=== PATIENT | female | born 1945 | race Two or more races ===

== ENCOUNTER 2016-10-19 11:11 | Inpatient (IN) | payer MEDICARE, MEDICAID ==
[~2016-10-19] VITALS: Ht 157.5 cm; Wt 72.6 kg
[2016-10-19 11:40] VITALS: BP 152/88
[2016-10-19 12:19] LABS: APPEARANCE,URINE CLEAR; KETONES,URINE 4+ (NEGATIVE); LEUKOCYTE ESTERASE ,URINE 1+ (NEGATIVE); NITRITE,URINE NEGATIVE (NEGATIVE); PH,URINE 8 (4.5-8.0); PROTEIN,URINE NEGATIVE (NEGATIVE); UROBILINOGEN,URINE NORMAL MG/DL (0.0-1.0)
[2016-10-19 12:22] LABS: BASOPHILS % (AUTO) 0.4 % (0.0-2.0); EOSINOPHILS % (AUTO) 0.2 % (0.0-3.0); LYMPHOCYTES % (AUTO) 14.1 % (20.0-45.0); MEAN CORPUSCULAR HEMOGLOBIN 31.5 PG (27.0-31.0); MEAN CORPUSCULAR HGB CONC 33.2 G/DL (32.0-36.0); MEAN CORPUSCULAR VOLUME 95 FL (80-99); MEAN PLATELET VOLUME 7.5 FL (6.5-10.1); MONOCYTES % (AUTO) 2.6 % (1.0-10.0); NEUTROPHILS % (AUTO) 82.7 % (45.0-75.0); PLATELET COUNT 295 K/UL (150-450); RED CELL DISTRIBUTION WIDTH 13.7 % (11.6-14.8); WHITE BLOOD COUNT 10.3 K/UL (4.8-10.8)
--- NOTE | 2016-10-19 12:25 | Diagnostic Imaging Report ---
Indication: Altered mental status Technique: spiral acquisitions obtained through the brain. Angled axial and coronal 5 x 5 mm slices were reconstructed. No IV contrast utilized. Radiation dose was minimized using automated exposure control Total dose length product 1421 mGycm. CTDIvol(s) 70 mGy Comparison: none FINDINGS: No acute hemorrhage or edema. No mass effect or midline shift. There is age-related enlargement of the ventricles and extra axial CSF spaces. There is periventricular deep white matter ischemic change. Normal christie-white differentiation. Visualized orbits are unremarkable. Visualized sinuses are unremarkable. Intact calvarium. IMPRESSION: Chronic and age-related changes. Negative for acute intracranial bleed or mass effect The CT scanner at [facility] is accredited by the [employer] and the scans are performed using protocols designed to limit radiation exposure to as low as reasonably achievable to attain images of sufficient resolution adequate for diagnostic evaluation
[2016-10-19 12:30] LABS: AMORPHOUS SEDIMENT,UR FEW /LPF; BACTERIA,URINE FEW /HPF; RBC,URINE 0-2 /HPF (0 - 2); SQUAMOUS EPITHELIAL CELL,UR FEW /LPF (NONE/OCC)
[2016-10-19 12:32] LABS: ACETAMINOPHEN < 10 ug/mL (10-30); ALANINE AMINOTRANSFERASE 18 U/L (3-33); ALBUMIN/GLOBULIN RATIO 1.2 (1.0-2.7); ALCOHOL < 10 mg/dL; ANION GAP 21 (5-15); ASPARTATE AMINO TRANSFERASE 20 U/L (5-40); CARBON DIOXIDE 23 mEQ/L (20-30); CHLORIDE 96 mEQ/L (98-107); CREATININE 0.8 mg/dL (0.5-0.9); GLOMERULAR FILTRATION RATE > 60 mL/min (>60); HEMOLYSIS 22; SODIUM 140 mEQ/L (135-145)
[2016-10-19 12:34] LABS: TROPONIN I < 0.30 ng/mL (<=0.30)
[2016-10-19] MEDS ORDERED: BISACODYL5 MG ORAL (12:42)
[2016-10-19] MEDS ORDERED: VITAMIN C500 M1 ORAL (12:42)
[2016-10-19] MEDS ORDERED: VITAMIN D250000 UNI1 ORAL (12:42)
[2016-10-19] MEDS ORDERED: LYRICA75 M1 ORAL ×2 (12:43→12:50)
[2016-10-19 12:44] LABS: CKMB 1.7 ng/mL (< 3.8)
[2016-10-19] MEDS ORDERED: BENZONATATE100 MG ORAL (12:46)
[2016-10-19] MEDS ORDERED: TYLENOL EXTRA500 MG ORAL (12:46)
[2016-10-19] MEDS ORDERED: Tumeric ORAL (12:46)
[2016-10-19] MEDS ORDERED: PROAIR HFA8.5 GM INH (12:46)
[2016-10-19] MEDS ORDERED: FISH OIL CAP1000 MG ORAL (12:50)
[2016-10-19] MEDS ORDERED: CYMBALTA60 MG ORAL (12:50)
[2016-10-19] MEDS ORDERED: TUSSIN DM COUG118 ML PO (12:50)
[2016-10-19] MEDS ORDERED: NORCO 5-325 TA1 EAC1 ORAL (12:50)
[2016-10-19] MEDS ORDERED: MELATONIN1 M2 PO (12:50)
[2016-10-19] MEDS ORDERED: CELEBREX200 MG ORAL (12:50)
[2016-10-19] MEDS ORDERED: ATIVAN1 MG ORAL (12:50)
[2016-10-19 13:30] VITALS: BP 144/77
[2016-10-19 14:43] VITALS: BP 146/86
--- NOTE | 2016-10-19 16:21 | Emergency Room Report ---
History of Present Illness General Chief Complaint: Altered Level of Consciousness Source: EMS, Caregiver Present Illness HPI 71-year-old female presents ED for evaluation. Per EMS patient noted to be more altered unusual starting this morning. Patient lives in an assisted- living facility. Patient has extensive psychiatric history. Unclear whether patient may have overdosed. Patient is awake but is not responding to questions. Hair Colorist at bedside states that patient was recently discharged from [facility] after being hospitalized for approximately one week for similar psychotic episode. Patient is in no distress upon arrival. No reported fevers or chills. Report chest pain shortness of breath. No other aggravating relieving factors. No other associated symptoms Allergies: Coded Allergies: HALOPERIDOL (Verified Allergy, Unknown, 10/19/16) Patient History Past Medical History: psych hx Past Surgical History: none Pertinent Family History: none Social History: Denies: alcohol use, drug use, smoking Now: No Immunizations: UTD Reviewed Nursing Documentation: PMH: Agreed, PSxH: Agreed Nursing Documentation-PMH Past Medical History: No History, Except For Hx Neurological Problems: Yes - SCHIZOPHERINIA, ANXIETY. Review of Systems All Other Systems: negative except mentioned in HPI Physical Exam Vital Signs Date Time Temp Pulse Resp B/P Pulse Ox O2 Delivery O2 Flow Rate FiO2 10/19/16 11:14 87 18 152/88 100 Room Air Sp02 EP Interpretation: reviewed, normal General Appearance: no apparent distress, non-toxic, other - catatonic Head: normocephalic Eyes: bilateral eye PERRL, bilateral eye normal inspection ENT: normal ENT inspection Neck: normal inspection Respiratory: chest non-tender, lungs clear, normal breath sounds, speaking full sentences Cardiovascular #1: regular rate, rhythm, no edema Gastrointestinal: normal bowel sounds, non tender, soft, non-distended, no guarding, no rebound Rectal: deferred Genitourinary: no CVA tenderness Musculoskeletal: normal inspection Neurologic: other - catatonic Psychiatric: other - catatonic Skin: normal inspection Lymphatic: normal inspection Medical Decision Making Diagnostic Impression: Primary Impression: Psychosis Qualified Codes: F29 - Unspecified psychosis not due to a substance or known physiological condition Additional Impression: Catatonia schizophrenia ER Course Hospital Course 71-year-old female presents ED catatonic state. Not responding to questions. Awake. Extensive psychiatric history Differential diagnoses include: Major depressive disorder, unspecified psychosis , EtOH abuse, drug abuse Clinical course Patient placed on stretcher. On one to one observation. After initial history and physical I ordered labs, U. tox, CT head Labs-electrolytes normal, aspirin/Tylenol levels normal, EtOH level normal, U. tox negative CT Head ok EKG - NSr, no acute changes Patient is medically cleared and pending psychiatric evaluation. I discussed case with psychiatrist Dr. David Botello. He agrees that patient does need to be hospitalized He will attempt to arrange transfer to [facility]. I feel this is a highly complex case requiring extensive working including EKG/Rhythm strip, Xray/CT/US, Blood/urine lab work, repeat exams while in ED, and administration of strong opiates/narcotics for pain control, admission to hospital or close patient follow up. Diagnoses-psychosis, catatonic schizophrenia Transfer to psychiatric hospital in serious condition Labs Test 10/19/16 11:30 White Blood Count 10.3 K/UL (4.8-10.8) Red Blood Count 5.30 M/UL (4.20-5.40) Hemoglobin 16.7 G/DL (12.0-16.0) Hematocrit 50.3 % (37.0-47.0) Mean Corpuscular Volume 95 FL (80-99) Mean Corpuscular Hemoglobin 31.5 PG (27.0-31.0) Mean Corpuscular Hemoglobin Concent 33.2 G/DL (32.0-36.0) Red Cell Distribution Width 13.7 % (11.6-14.8) Platelet Count 295 K/UL (150-450) Mean Platelet Volume 7.5 FL (6.5-10.1) Neutrophils (%) (Auto) 82.7 % (45.0-75.0) Lymphocytes (%) (Auto) 14.1 % (20.0-45.0) Monocytes (%) (Auto) 2.6 % (1.0-10.0) Eosinophils (%) (Auto) 0.2 % (0.0-3.0) Basophils (%) (Auto) 0.4 % (0.0-2.0) Urine Color Yellow Urine Appearance Clear Urine pH 8 (4.5-8.0) Urine Specific [place] 1.010 (1.005-1.035) Urine Protein Negative (NEGATIVE) Urine Glucose (UA) Negative (NEGATIVE) Urine Ketones 4+ (NEGATIVE) Urine Occult Blood Negative (NEGATIVE) Urine Nitrite Negative (NEGATIVE) Urine Bilirubin Negative (NEGATIVE) Urine Urobilinogen Normal MG/DL (0.0-1.0) Urine Leukocyte Esterase 1+ (NEGATIVE) Urine RBC 0-2 /HPF (0 - 2) Urine WBC 5-10 /HPF (0 - 2) Urine Squamous Epithelial Cells Few /LPF (NONE/OCC) Urine Amorphous Sediment Few /LPF (NONE) Urine Bacteria Few /HPF (NONE) Sodium Level 140 mEQ/L (135-145) Potassium Level 4.0 mEQ/L (3.4-4.9) Chloride Level 96 mEQ/L (98-107) Carbon Dioxide Level 23 mEQ/L (20-30) Anion Gap 21 (5-15) Blood Urea Nitrogen 12 mg/dL (7-23) Creatinine 0.8 mg/dL (0.5-0.9) Estimat Glomerular Filtration Rate > 60 mL/min (>60) Glucose Level 136 mg/dL (74-106) Calcium Level 10.0 mg/dL (8.6-10.2) Total Bilirubin 0.4 mg/dL (0.0-1.2) Aspartate Amino Transf (AST/SGOT) 20 U/L (5-40) Alanine Aminotransferase (ALT/SGPT) 18 U/L (3-33) Alkaline Phosphatase 88 U/L (35-104) Creatine Kinase MB 1.7 ng/mL (< 3.8) Troponin I < 0.30 ng/mL (<=0.30) Total Protein 7.0 g/dL (6.6-8.7) Albumin 3.9 g/dL (3.5-5.2) Globulin 3.1 g/dL Albumin/Globulin Ratio 1.2 (1.0-2.7) Salicylates Level < 1 mg/dL (10-30) Urine Opiates Screen Negative (NEGATIVE) Acetaminophen Level < 10 ug/mL (10-30) Urine Barbiturates Screen Negative (NEGATIVE) Phencyclidine (PCP) Screen Negative (NEGATIVE) Urine Amphetamines Screen Negative (NEGATIVE) Urine Benzodiazepines Screen Negative (NEGATIVE) Urine Cocaine Screen Negative (NEGATIVE) Urine Marijuana (THC) Screen Negative (NEGATIVE) Serum Alcohol < 10 mg/dL EKG Diagnostic Results Rate: normal Rhythm: NSR ST Segments: no acute changes ASA given to the pt in ED: No Rhythm Strip Diag. Results EP Interpretation: yes Rhythm: NSR, no PVC's, no ectopy CT/MRI/US Diagnostic Results CT/MRI/US Diagnostic Results : Imaging Test Ordered: CT Head Impression no acute process Last Vital Signs Date Time Temp Pulse Resp B/P Pulse Ox O2 Delivery O2 Flow Rate FiO2 10/19/16 14:43 79 17 146/86 97 Room Air Status: improved Disposition: XFER T-[facility] Condition: Serious Referrals: NOT CHOSEN IPA/,REFERRING (PCP) ELLE DAVIS M.D. Oct 19, 2016 16:21
[2016-10-19 16:50] VITALS: BP 139/70
[2016-10-19 19:05] VITALS: BP 149/64
[2016-10-19 21:04] VITALS: BP 142/78
[2016-10-19] MEDS ORDERED: LORazepam 1mg tab ORAL PRN (22:00)
[2016-10-19] MEDS ORDERED: guaiFENesin DM 100mg/5ml ORAL PRN (22:00)
[2016-10-19] MEDS ORDERED: Bisacodyl EC 5mg tab ORAL PRN ×2 (22:00→22:05)
[2016-10-19] MEDS ORDERED: Milk of Magnesia 30ml Ud ORAL PRN (22:00)
[2016-10-19] MEDS ORDERED: Acetaminophen 500mg (ES) tab ORAL PRN (22:00)
[2016-10-19] MEDS ORDERED: Miralax 17gm pkt ORAL PRN ×2 (22:00→22:05)
[2016-10-19] MEDS ORDERED: Benzonatate 100mg Perles ORAL PRN (22:00)
[2016-10-19] MEDS ORDERED: Albuterol ud Inhalation HHN PRN (22:15)
[2016-10-19] MEDS ORDERED: Meloxicam 15 MG TAB ORAL PRN (22:15)
[2016-10-19] MEDS: Docusate 100mg tablet ORAL SCH (22:30)
--- NOTE | 2016-10-19 22:58 | History and Physical ---
History of Present Illness General Date patient seen: Oct 19, 2016 Time patient seen: 22:58 Reason for Hospitalization: Altered Level of Consciousness Present Illness HPI 71y/o female with pmh of schizophrenia, anxiety who presents with AMS. Per EMS patient noted to be more altered unusual starting this morning. Patient lives in an assisted-living facility. Patient is awake but is not responding to questions. Road Passenger Firer at bedside states that patient was recently discharged from [facility] after being hospitalized for approximately one week for similar psychotic episode. No reports of f/c, n/v, d/c, chest pain, SOB, abd pain. In ED, CT head showed no acute abnormality. Allergies: Coded Allergies: HALOPERIDOL (Verified Allergy, Unknown, 10/19/16) Medication History Scheduled Ascorbic Acid* (Vitamin C*), 1,000 MG ORAL TWICE A DAY, (Reported) Duloxetine Hcl* (Cymbalta*), 60 MG ORAL DAILY, (Reported) Ergocalciferol (Vitamin D2)* (Vitamin D*), 50,000 UNIT ORAL ONCE A WEEK, ( Reported) Fish Oil (Fish Oil 1,000 mg Capsule), 1,000 MG ORAL DAILY, (Reported) Melatonin (Melatonin), 3 MG PO BEDTIME, (Reported) Pregabalin* (Lyrica*), 200 MG ORAL DAILY, (Reported) Pregabalin* (Lyrica*), 100 MG ORAL BID, (Reported) [Tumeric], 500 MG ORAL BID, (Reported) Scheduled PRN Acetaminophen* (Tylenol Extra Strength*), 1,000 MG ORAL BID PRN for Prn Headache /Temp > 101, (Reported) Albuterol Sulfate* (Proair Hfa*), 2 PUFFS INH Q4HR PRN for Shortness of Breath, (Reported) Benzonatate* (Benzonatate*), 100 MG ORAL THREE TIMES A DAY PRN for For Cough, ( Reported) Bisacodyl* (Dulcolax*), 5 MG ORAL DAILY PRN for Constipation, (Reported) Celecoxib* (Celebrex*), 200 MG ORAL TWICE A DAY PRN for For Pain, (Reported) Guaifenesin/Dextromethorphan (Tussin Dm Cough & Chest Syrup), 5 ML PO EVERY 4 HOURS PRN for For Cough, (Reported) Hydrocodone Bit/Acetaminophen 5-325* ([place] 5-325 Tablet*), 1 TAB ORAL Q6HR PRN for For Pain, (Reported) Lorazepam* (Ativan*), 1 MG ORAL BEDTIME PRN for For Anxiety, (Reported) Patient History History Provided By: Patient, Family Member, Medical Record Healthcare decision maker Resuscitation status Advanced Directive on File Family History Family History: Patient reports no known family medical history. Social History Social History: (1) Lives in assisted living facility Review of Systems ROS Narrative Unable to obtain given AMS Physical Exam Physical Exam Narrative General: alert, cooperative, no distress, appears stated age; flat affect Head: normocephalic, without obvious abnormality, atraumatic Eyes: conjunctivae/corneas clear. PERRL, EOM's intact Throat: lips, mucosa, and tongue normal. MMM Neck: supple, symmetrical, trachea midline, and no JVD Lungs: clear to auscultation bilaterally Heart: regular rate and rhythm, S1, S2 normal, no murmur, click, rub or gallop Abdomen: soft, non-tender, non-distended, bowel sounds normal; no masses or organomegaly Extremities: extremities normal, atraumatic, no cyanosis or edema Pulses: 2+ and symmetric Skin: skin color, texture, turgor normal; no rashes or lesions Neurologic: grossly normal, no focal deficits Last 24 Hour Vital Signs Date Time Temp Pulse Resp B/P Pulse Ox O2 Delivery O2 Flow Rate FiO2 10/19/16 21:04 72 20 142/78 94 Room Air 10/19/16 19:05 75 17 149/64 97 Room Air 10/19/16 16:50 77 17 139/70 97 Room Air 10/19/16 14:43 79 17 146/86 97 Room Air 10/19/16 13:30 76 18 144/77 96 Room Air 10/19/16 11:40 18 152/88 100 Room Air 10/19/16 11:14 87 18 152/88 100 Room Air Laboratory Tests Test 10/19/16 11:30 White Blood Count 10.3 K/UL (4.8-10.8) Red Blood Count 5.30 M/UL (4.20-5.40) Hemoglobin 16.7 G/DL (12.0-16.0) H Hematocrit 50.3 % (37.0-47.0) H Mean Corpuscular Volume 95 FL (80-99) Mean Corpuscular Hemoglobin 31.5 PG (27.0-31.0) H Mean Corpuscular Hemoglobin Concent 33.2 G/DL (32.0-36.0) Red Cell Distribution Width 13.7 % (11.6-14.8) Platelet Count 295 K/UL (150-450) Mean Platelet Volume 7.5 FL (6.5-10.1) Neutrophils (%) (Auto) 82.7 % (45.0-75.0) H Lymphocytes (%) (Auto) 14.1 % (20.0-45.0) L Monocytes (%) (Auto) 2.6 % (1.0-10.0) Eosinophils (%) (Auto) 0.2 % (0.0-3.0) Basophils (%) (Auto) 0.4 % (0.0-2.0) Urine Color Yellow Urine Appearance Clear Urine pH 8 (4.5-8.0) Urine Specific [place] 1.010 (1.005-1.035) Urine Protein Negative (NEGATIVE) Urine Glucose (UA) Negative (NEGATIVE) Urine Ketones 4+ (NEGATIVE) H Urine Occult Blood Negative (NEGATIVE) Urine Nitrite Negative (NEGATIVE) Urine Bilirubin Negative (NEGATIVE) Urine Urobilinogen Normal MG/DL (0.0-1.0) Urine Leukocyte Esterase 1+ (NEGATIVE) H Urine RBC 0-2 /HPF (0 - 2) Urine WBC 5-10 /HPF (0 - 2) H Urine Squamous Epithelial Cells Few /LPF (NONE/OCC) Urine Amorphous Sediment Few /LPF (NONE) H Urine Bacteria Few /HPF (NONE) Sodium Level 140 mEQ/L (135-145) Potassium Level 4.0 mEQ/L (3.4-4.9) Chloride Level 96 mEQ/L (98-107) L Carbon Dioxide Level 23 mEQ/L (20-30) Anion Gap 21 (5-15) H Blood Urea Nitrogen 12 mg/dL (7-23) Creatinine 0.8 mg/dL (0.5-0.9) Estimat Glomerular Filtration Rate > 60 mL/min (>60) Glucose Level 136 mg/dL (74-106) H Calcium Level 10.0 mg/dL (8.6-10.2) Total Bilirubin 0.4 mg/dL (0.0-1.2) Aspartate Amino Transf (AST/SGOT) 20 U/L (5-40) Alanine Aminotransferase (ALT/SGPT) 18 U/L (3-33) Alkaline Phosphatase 88 U/L (35-104) Creatine Kinase MB 1.7 ng/mL (< 3.8) Troponin I < 0.30 ng/mL (<=0.30) Total Protein 7.0 g/dL (6.6-8.7) Albumin 3.9 g/dL (3.5-5.2) Globulin 3.1 g/dL Albumin/Globulin Ratio 1.2 (1.0-2.7) Salicylates Level < 1 mg/dL (10-30) L Urine Opiates Screen Negative (NEGATIVE) Acetaminophen Level < 10 ug/mL (10-30) L Urine Barbiturates Screen Negative (NEGATIVE) Phencyclidine (PCP) Screen Negative (NEGATIVE) Urine Amphetamines Screen Negative (NEGATIVE) Urine Benzodiazepines Screen Negative (NEGATIVE) Urine Cocaine Screen Negative (NEGATIVE) Urine Marijuana (THC) Screen Negative (NEGATIVE) Serum Alcohol < 10 mg/dL Height (Feet): 5 Height (Inches): 2.00 Weight (Pounds): 160 Medications Current Medications Medications (Trade) Dose Ordered Sig/Nayana Route PRN Reason Start Time Stop Time Status Last Admin Dose Admin Acetaminophen (Tylenol) 1,000 mg BIDPRN PRN ORAL Prn Headache/Temp > 101 10/19/16 22:00 11/18/16 21:59 Acetaminophen/ Hydrocodone Bitart ([place] 5/325) 1 tab Q6H PRN ORAL PAIN 4-10 10/19/16 22:00 10/26/16 21:59 Albuterol Sulfate (Proventil) 2.5 mg Q4H PRN HHN Shortness of Breath 10/19/16 22:15 10/24/16 22:14 Ascorbic Acid (Vitamin C) 1,000 mg TWICE A DAY ORAL 10/20/16 09:00 11/19/16 08:59 Benzonatate (Tessalon Perles) 100 mg Q8H PRN ORAL For Cough 10/19/16 22:00 11/18/16 21:59 Bisacodyl (Dulcolax) 5 mg DAILYPRN PRN ORAL Constipation 10/19/16 22:05 11/18/16 21:59 Bisacodyl (Dulcolax) 10 mg HSPRN PRN RECTAL Constipation 10/19/16 22:00 11/18/16 21:59 Dextrose (Dextrose 50%) STAT PRN IV Hypoglycemia 10/19/16 22:00 11/18/16 21:59 Docusate Sodium (Colace) 100 mg EVERY 12 HOURS ORAL 10/19/16 22:30 11/18/16 22:29 Duloxetine HCl (Cymbalta) 60 mg DAILY ORAL 10/20/16 09:00 11/19/16 08:59 Fish Oil (Fish Oil) 1,000 mg DAILY ORAL 10/20/16 09:00 11/19/16 08:59 Guaifenesin/ Dextromethorphan (Robitussin DM) 5 ml Q4H PRN ORAL For Cough 10/19/16 22:00 11/18/16 21:59 Heparin Sodium (Porcine) (Heparin 5000 units/ml) 5,000 units EVERY 12 HOURS SUBQ 10/20/16 09:00 11/19/16 08:59 Lorazepam (Ativan) 1 mg HSPRN PRN ORAL For Anxiety 10/19/16 22:00 10/26/16 21:59 Magnesium Hydroxide (Mom) 30 ml HSPRN PRN ORAL Constipation 10/19/16 22:00 11/18/16 21:59 Meloxicam (Mobic) 15 mg DAILYPRN PRN ORAL Mild Pain (Pain Scale 1-3) 10/19/16 22:15 11/18/16 22:14 Ondansetron HCl (Zofran) 4 mg Q6H PRN IVP Nausea & Vomiting 10/19/16 22:00 11/18/16 21:59 Polyethylene Glycol (Miralax) 17 gm HSPRN PRN ORAL Constipation 10/19/16 22:05 11/18/16 21:59 Pregabalin (Lyrica) 100 mg BID@0800,1600 ORAL 10/20/16 08:00 11/19/16 07:59 Pregabalin (Lyrica) 200 mg QHS ORAL 10/20/16 21:00 11/19/16 20:59 Assessment/Plan Problem List: (1) Acute encephalopathy ICD Codes: G93.40 - Encephalopathy, unspecified SNOMED: 0625888 (2) UTI (urinary tract infection) ICD Codes: N39.0 - Urinary tract infection, site not specified SNOMED: 20637857 (3) Schizophrenia ICD Codes: F20.9 - Schizophrenia, unspecified SNOMED: 22005183 (4) Psychosis ICD Codes: F29 - Unspecified psychosis not due to a substance or known physiological condition SNOMED: 90154217 Qualifiers: Qualified Codes: F29 - Unspecified psychosis not due to a substance or known physiological condition Status: stable Assessment/Plan Admit to inpt Psych consulted (Dr. Valerio called in ED) Check TSH, B12/folate, Vit D Cont home meds Ceftriaxone for UTI (10/20-) F/u urine culture Pain control, bowel regimen, supportive care DVT Prophylaxis: SCD, HSQ Code Status: Full Hospital Classification Declaration: Based on this initial evaluation, and depending on the patient's clinical course, I anticipate that this patient will require hospitalization for 2-3 days for AMS, psychosis and close respiratory/ hemodynamic monitoring. Disposition: Once the patient is stable to leave the hospital, I anticipate the patient will likely be discharged to the following environment: home with HH vs SNF I spent 70 minutes on this patient's case, and 37 minutes were dedicated to counseling and/or care coordination. Discussed with patient/family, nursing staff, SW/CM, ED physician regarding clinical status, treatment course, and disposition planning. Time of note may not reflect time of encounter. Lucina Jason M.D. Oct 19, 2016 22:58
[2016-10-20 00:35] VITALS: BP 144/82
[2016-10-20 04:37] VITALS: BP 124/72
[2016-10-20 07:23] LABS: BASOPHILS % (AUTO) 0.3 % (0.0-2.0); EOSINOPHILS % (AUTO) 0.4 % (0.0-3.0); LYMPHOCYTES % (AUTO) 16.6 % (20.0-45.0); MEAN CORPUSCULAR HEMOGLOBIN 31.6 PG (27.0-31.0); MEAN CORPUSCULAR HGB CONC 33.7 G/DL (32.0-36.0); MEAN CORPUSCULAR VOLUME 94 FL (80-99); MEAN PLATELET VOLUME 8.1 FL (6.5-10.1); MONOCYTES % (AUTO) 5.7 % (1.0-10.0); PLATELET COUNT 276 K/UL (150-450); RED BLOOD COUNT 4.82 M/UL (4.20-5.40); RED CELL DISTRIBUTION WIDTH 13.3 % (11.6-14.8); WHITE BLOOD COUNT 12.4 K/UL (4.8-10.8)
[2016-10-20 07:50] LABS: THYROID STIMULATING HORMONE 0.215 uIU/mL (0.300-4.500)
[2016-10-20 07:55] LABS: ANION GAP 20 (5-15); CALCIUM 9.4 mg/dL (8.6-10.2); CARBON DIOXIDE 22 mEQ/L (20-30); CHLORIDE 99 mEQ/L (98-107); CREATININE 0.7 mg/dL (0.5-0.9); GLOMERULAR FILTRATION RATE > 60 mL/min (>60); HEMOLYSIS 13; MAGNESIUM 1.8 mg/dL (1.7-2.5); POTASSIUM 3.6 mEQ/L (3.4-4.9); SODIUM 141 mEQ/L (135-145)
[2016-10-20 08:00] VITALS: BP 144/90
[2016-10-20] MEDS: Lyrica 50mg cap ORAL SCH ×3 (08:21→20:54)
[2016-10-20] MEDS: Ascorbic Acid 500mg tab ORAL SCH ×2 (08:40→17:31)
[2016-10-20] MEDS: Docusate 100mg tablet ORAL SCH ×2 (08:40→20:53)
[2016-10-20] MEDS: DULoxetine 30mg cap ORAL SCH (08:40)
[2016-10-20] MEDS: Heparin 5000 units/ml inj SUBQ SCH ×2 (08:41→20:55)
[2016-10-20 12:00] VITALS: BP 138/81
[2016-10-20 15:57] VITALS: BP 120/70
[2016-10-20] MEDS: cefTRIAXone 1 GM in D5W 55 ML IVPB SCH (17:22)
[2016-10-20 20:10] VITALS: BP_SYST 122; BP_SYST 126; BP_DIAS 72; BP_DIAS 81
--- NOTE | 2016-10-20 23:28 | General Progress Note ---
Assessment/Plan Problem List: (1) Acute encephalopathy ICD Codes: G93.40 - Encephalopathy, unspecified SNOMED: 5399892 (2) UTI (urinary tract infection) ICD Codes: N39.0 - Urinary tract infection, site not specified SNOMED: 22380954 (3) Schizophrenia ICD Codes: F20.9 - Schizophrenia, unspecified SNOMED: 17929897 (4) Psychosis ICD Codes: F29 - Unspecified psychosis not due to a substance or known physiological condition SNOMED: 44078445 Qualifiers: Qualified Codes: F29 - Unspecified psychosis not due to a substance or known physiological condition Status: stable Assessment/Plan Psych consulted (Dr. Valerio called in ED)--awaiting rec's if pt needs to go to inpatient psych Check TSH, B12/folate, Vit D Cont home meds Ceftriaxone for UTI (10/20-) F/u urine culture Pain control, bowel regimen, supportive care DVT Prophylaxis: SCD, HSQ Code Status: Full Hospital Classification Declaration: Based on this initial evaluation, and depending on the patient's clinical course, I anticipate that this patient will require hospitalization for 2-3 days for AMS, psychosis and close respiratory/ hemodynamic monitoring. Disposition: Once the patient is stable to leave the hospital, I anticipate the patient will likely be discharged to the following environment: back to CARE HOME vs SNF vs inpatient psych I spent 40 minutes on this patient's case, and 22 minutes were dedicated to counseling and/or care coordination. Discussed with patient/family, nursing staff, SW/CM regarding clinical status, treatment course, and disposition planning. Time of note may not reflect time of encounter. Subjective Date patient seen: Oct 20, 2016 Time patient seen: 13:00 ROS Limited/Unobtainable: Yes Constitutional: Reports: no symptoms HEENT: Reports: no symptoms Cardiovascular: Reports: no symptoms Respiratory: Reports: no symptoms Gastrointestinal/Abdominal: Reports: no symptoms Genitourinary: Reports: no symptoms Neurologic/Psychiatric: Reports: no symptoms Endocrine: Reports: no symptoms Hematologic/Lymphatic: Reports: no symptoms Allergies: Coded Allergies: HALOPERIDOL (Verified Allergy, Unknown, 10/19/16) All Systems: reviewed and negative except above Subjective Pt awake, alert Calm, comfortable appearing Flat affect ROS limited 2/2 AMS Objective Last 24 Hour Vital Signs Date Time Temp Pulse Resp B/P Pulse Ox O2 Delivery O2 Flow Rate FiO2 10/20/16 20:10 97.3 78 20 126/81 100 Room Air 10/20/16 19:20 75 16 Room Air 21 10/20/16 15:57 97.9 94 18 120/70 94 Room Air 10/20/16 12:00 98.2 87 18 138/81 94 Room Air 10/20/16 08:00 97.2 20 144/90 94 Room Air 10/20/16 07:22 75 Room Air 21 10/20/16 07:22 74 15 10/20/16 04:37 97.3 81 20 124/72 87 Room Air 10/20/16 00:35 96.6 67 19 144/82 94 Room Air Intake and Output 10/19/16 10/20/16 19:00 07:00 Intake Total 500 ml 240 ml Balance 500 ml 240 ml Intake Oral 0 ml 240 ml IV Total 500 ml Laboratory Tests 10/20/16 04:50: Free Thyroxine 1.24 10/20/16 05:05: White Blood Count 12.4H, Red Blood Count 4.82, Hemoglobin 15.2, Hematocrit 45.2 , Mean Corpuscular Volume 94, Mean Corpuscular Hemoglobin 31.6H, Mean Corpuscular Hemoglobin Concent 33.7, Red Cell Distribution Width 13.3, Platelet Count 276, Mean Platelet Volume 8.1, Neutrophils (%) (Auto) 77.0H, Lymphocytes ( %) (Auto) 16.6L, Monocytes (%) (Auto) 5.7, Eosinophils (%) (Auto) 0.4, Basophils (%) (Auto) 0.3, Sodium Level 141, Potassium Level 3.6, Chloride Level 99, Carbon Dioxide Level 22, Anion Gap 20H, Blood Urea Nitrogen 18, Creatinine 0.7, Estimat Glomerular Filtration Rate > 60, Glucose Level 110H, Calcium Level 9.4, Magnesium Level 1.8, Vitamin B12 Level > 2000H, Vitamin D 25-Hydroxy [ Pending], 25-Hydroxy Vitamin D2 [Pending], 25-Hydroxy Vitamin D3 [Pending], Folate [Pending], Thyroid Stimulating Hormone (TSH) 0.215L Height (Feet): 5 Height (Inches): 2.00 Weight (Pounds): 160 Objective General: alert, cooperative, no distress, appears stated age Head: normocephalic, without obvious abnormality, atraumatic Eyes: conjunctivae/corneas clear. PERRL, EOM's intact Throat: lips, mucosa, and tongue normal. MMM Neck: supple, symmetrical, trachea midline, and no JVD Lungs: clear to auscultation bilaterally Heart: regular rate and rhythm, S1, S2 normal, no murmur, click, rub or gallop Abdomen: soft, non-tender, non-distended, bowel sounds normal; no masses or organomegaly Extremities: extremities normal, atraumatic, no cyanosis or edema Pulses: 2+ and symmetric Skin: skin color, texture, turgor normal; no rashes or lesions Neurologic: grossly normal, no focal deficits Psych: flat affect Lucina Jason M.D. Oct 20, 2016 23:28
[2016-10-21 00:14] VITALS: BP 132/77
[2016-10-21 07:25] LABS: BASOPHILS % (AUTO) 0.6 % (0.0-2.0); EOSINOPHILS % (AUTO) 0.7 % (0.0-3.0); LYMPHOCYTES % (AUTO) 19.3 % (20.0-45.0); MEAN CORPUSCULAR HEMOGLOBIN 31.6 PG (27.0-31.0); MEAN CORPUSCULAR HGB CONC 33.2 G/DL (32.0-36.0); MEAN CORPUSCULAR VOLUME 95 FL (80-99); MEAN PLATELET VOLUME 7.6 FL (6.5-10.1); MONOCYTES % (AUTO) 7.7 % (1.0-10.0); NEUTROPHILS % (AUTO) 71.7 % (45.0-75.0); PLATELET COUNT 286 K/UL (150-450); RED BLOOD COUNT 4.75 M/UL (4.20-5.40); RED CELL DISTRIBUTION WIDTH 13.5 % (11.6-14.8); WHITE BLOOD COUNT 12.4 K/UL (4.8-10.8)
[2016-10-21 07:52] LABS: ANION GAP 15 (5-15); CALCIUM 9.5 mg/dL (8.6-10.2); CARBON DIOXIDE 27 mEQ/L (20-30); CHLORIDE 100 mEQ/L (98-107); CREATININE 0.8 mg/dL (0.5-0.9); GLOMERULAR FILTRATION RATE > 60 mL/min (>60); HEMOLYSIS 3; POTASSIUM 3.3 mEQ/L (3.4-4.9); SODIUM 142 mEQ/L (135-145)
[2016-10-21] MEDS: DULoxetine 30mg cap ORAL SCH (08:31)
[2016-10-21] MEDS: Lyrica 50mg cap ORAL SCH ×3 (08:31→21:05)
[2016-10-21] MEDS: Docusate 100mg tablet ORAL SCH ×2 (08:31→21:05)
[2016-10-21] MEDS: Ascorbic Acid 500mg tab ORAL SCH ×2 (08:32→18:32)
[2016-10-21] MEDS: Heparin 5000 units/ml inj SUBQ SCH ×2 (08:38→21:08)
[2016-10-21 10:09] VITALS: BP 143/81
[2016-10-21 12:00] VITALS: BP 131/86
[2016-10-21] MEDS: Norco 5mg/325mg tab ORAL PRN ×2 (12:26→21:06)
--- NOTE | 2016-10-21 14:27 | Cardiology Report ---
APPROVED REPORT EKG Measurement Heart [id number] OR [id number] Sinus rhythm with premature supraventricular complexes Otherwise normal ECG
[2016-10-21] MEDS: Ketotifen Fumarate 0.035% 5ml RIGHT EYE SCH ×2 (14:59→21:05)
[2016-10-21] MEDS ORDERED: Tubing IV Secondary IV ONE (15:23)
[2016-10-21] MEDS ORDERED: NS 275ml ONE (15:23)
[2016-10-21 16:00] VITALS: BP 147/91
[2016-10-21] MEDS: cefTRIAXone 1 GM in D5W 55 ML IVPB SCH (17:00)
--- NOTE | 2016-10-21 17:30 | General Progress Note ---
Assessment/Plan Problem List: (1) Acute encephalopathy ICD Codes: G93.40 - Encephalopathy, unspecified SNOMED: 8792708 (2) UTI (urinary tract infection) ICD Codes: N39.0 - Urinary tract infection, site not specified SNOMED: 25811353 (3) Schizophrenia ICD Codes: F20.9 - Schizophrenia, unspecified SNOMED: 18970232 (4) Psychosis ICD Codes: F29 - Unspecified psychosis not due to a substance or known physiological condition SNOMED: 68670916 Qualifiers: Qualified Codes: F29 - Unspecified psychosis not due to a substance or known physiological condition Status: stable Assessment/Plan Psych consulted (Dr. Valerio called in ED)--awaiting rec's; unclear if pt needs to transfer to inpatient psych facility TSH low but free T4 wnl Cont home meds including psych Ceftriaxone for UTI (10/20-) F/u urine culture Pain control, bowel regimen, supportive care PT/OT D/w saray Bhardwaj. Nurse from [facility] to come to assess pt today per Lashae. Discussed possible SNF placement DVT Prophylaxis: SCD, HSQ Code Status: Full Hospital Classification Declaration: Based on this initial evaluation, and depending on the patient's clinical course, I anticipate that this patient will require hospitalization for 1-2 days for AMS, psychosis and close respiratory/ hemodynamic monitoring. Disposition: Once the patient is stable to leave the hospital, I anticipate the patient will likely be discharged to the following environment: back to [facility] vs SNF vs inpatient psych I spent 40 minutes on this patient's case, and 22 minutes were dedicated to counseling and/or care coordination. Discussed with patient/family, nursing staff, SW/CM regarding clinical status, treatment course, and disposition planning. Time of note may not reflect time of encounter. Subjective Date patient seen: Oct 21, 2016 Time patient seen: 17:26 ROS Limited/Unobtainable: No Constitutional: Reports: no symptoms HEENT: Reports: no symptoms Cardiovascular: Reports: no symptoms Respiratory: Reports: no symptoms Gastrointestinal/Abdominal: Reports: no symptoms Genitourinary: Reports: no symptoms Neurologic/Psychiatric: Reports: no symptoms Endocrine: Reports: no symptoms Hematologic/Lymphatic: Reports: no symptoms Allergies: Coded Allergies: HALOPERIDOL (Verified Allergy, Unknown, 10/19/16) All Systems: reviewed and negative except above Subjective No acute o/n events Awaiting psych rec's Pt awake, alert Calm, comfortable appearing Flat affect ROS limited 2/2 AMS D/w caregiver at bedside and pt's niece Lashae. Per Lashae nurse from [facility] to come to assess if pt OK to return to [facility]. Discussed possible SNF placement Objective Last 24 Hour Vital Signs Date Time Temp Pulse Resp B/P Pulse Ox O2 Delivery O2 Flow Rate FiO2 10/21/16 12:00 98.4 87 19 131/86 93 Room Air 10/21/16 10:09 97.7 75 19 143/81 95 Room Air 10/21/16 07:07 87 16 Room Air 10/21/16 00:14 98.2 72 20 132/77 100 Room Air 10/20/16 20:10 97.3 78 20 126/81 100 Room Air 10/20/16 19:20 75 16 Room Air 21 Intake and Output 10/20/16 10/21/16 19:00 07:00 Intake Total 875 ml Balance 875 ml Intake Oral 820 ml IV Total 55 ml # Voids 3 1 # Bowel Movements 1 Laboratory Tests 10/21/16 04:50: White Blood Count 12.4H, Red Blood Count 4.75, Hemoglobin 15.0, Hematocrit 45.1 , Mean Corpuscular Volume 95, Mean Corpuscular Hemoglobin 31.6H, Mean Corpuscular Hemoglobin Concent 33.2, Red Cell Distribution Width 13.5, Platelet Count 286, Mean Platelet Volume 7.6, Neutrophils (%) (Auto) 71.7, Lymphocytes (% ) (Auto) 19.3L, Monocytes (%) (Auto) 7.7, Eosinophils (%) (Auto) 0.7, Basophils (%) (Auto) 0.6, Sodium Level 142, Potassium Level 3.3L, Chloride Level 100, Carbon Dioxide Level 27, Anion Gap 15, Blood Urea Nitrogen 19, Creatinine 0.8, Estimat Glomerular Filtration Rate > 60, Glucose Level 102, Calcium Level 9.5 Height (Feet): 5 Height (Inches): 2.00 Weight (Pounds): 160 Objective General: alert, cooperative, no distress, appears stated age Head: normocephalic, without obvious abnormality, atraumatic Eyes: conjunctivae/corneas clear. PERRL, EOM's intact Throat: lips, mucosa, and tongue normal. MMM Neck: supple, symmetrical, trachea midline, and no JVD Lungs: clear to auscultation bilaterally Heart: regular rate and rhythm, S1, S2 normal, no murmur, click, rub or gallop Abdomen: soft, non-tender, non-distended, bowel sounds normal; no masses or organomegaly Extremities: extremities normal, atraumatic, no cyanosis or edema Pulses: 2+ and symmetric Skin: skin color, texture, turgor normal; no rashes or lesions Neurologic: grossly normal, no focal deficits Psych: flat affect Lucina Jason M.D. Oct 21, 2016 17:30
[2016-10-21 20:00] VITALS: BP 145/89
[2016-10-22] VITALS: BP 149/83
[2016-10-22 04:00] VITALS: BP 137/72
[2016-10-22 07:39] LABS: BASOPHILS % (AUTO) 0.7 % (0.0-2.0); EOSINOPHILS % (AUTO) 0.8 % (0.0-3.0); LYMPHOCYTES % (AUTO) 22.1 % (20.0-45.0); MEAN CORPUSCULAR HEMOGLOBIN 30.9 PG (27.0-31.0); MEAN CORPUSCULAR HGB CONC 32.4 G/DL (32.0-36.0); MEAN CORPUSCULAR VOLUME 95 FL (80-99); MEAN PLATELET VOLUME 7.5 FL (6.5-10.1); MONOCYTES % (AUTO) 7.7 % (1.0-10.0); NEUTROPHILS % (AUTO) 68.7 % (45.0-75.0); PLATELET COUNT 274 K/UL (150-450); RED BLOOD COUNT 4.62 M/UL (4.20-5.40); RED CELL DISTRIBUTION WIDTH 13.8 % (11.6-14.8); WHITE BLOOD COUNT 12.1 K/UL (4.8-10.8)
[2016-10-22 08:06] LABS: ANION GAP 15 (5-15); CALCIUM 9.4 mg/dL (8.6-10.2); CARBON DIOXIDE 25 mEQ/L (20-30); CHLORIDE 102 mEQ/L (98-107); CREATININE 0.7 mg/dL (0.5-0.9); GLOMERULAR FILTRATION RATE > 60 mL/min (>60); HEMOLYSIS 12; SODIUM 142 mEQ/L (135-145)
[2016-10-22 08:48] VITALS: BP 131/84
[2016-10-22] MEDS: Docusate 100mg tablet ORAL SCH ×2 (08:50→20:15)
[2016-10-22] MEDS: DULoxetine 30mg cap ORAL SCH (08:51)
[2016-10-22] MEDS: Lyrica 50mg cap ORAL SCH ×3 (08:52→20:15)
[2016-10-22] MEDS: Ascorbic Acid 500mg tab ORAL SCH ×2 (08:53→17:28)
[2016-10-22] MEDS: Ketotifen Fumarate 0.035% 5ml RIGHT EYE SCH ×2 (08:55→20:16)
[2016-10-22] MEDS: Heparin 5000 units/ml inj SUBQ SCH ×2 (08:55→20:18)
[2016-10-22 12:16] VITALS: BP 107/64
[2016-10-22 15:45] VITALS: BP 108/63
--- NOTE | 2016-10-22 18:32 | General Progress Note ---
Assessment/Plan Status: doing well, stable Assessment/Plan Assessment/Plan Problem List: (1) Acute encephalopathy ICD Codes: G93.40 - Encephalopathy, unspecified SNOMED: 0224214 (2) UTI (urinary tract infection) ICD Codes: N39.0 - Urinary tract infection, site not specified SNOMED: 31629619 (3) Schizophrenia ICD Codes: F20.9 - Schizophrenia, unspecified SNOMED: 56763449 (4) Psychosis ICD Codes: F29 - Unspecified psychosis not due to a substance or known physiological condition SNOMED: 48408775 Qualifiers: Qualified Codes: F29 - Unspecified psychosis not due to a substance or known physiological condition Status: stable Assessment/Plan Psych consulted (Dr. 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 If psych does not recommend locked facility, patient to go to SNF [facility] DVT Prophylaxis: SCD, HSQ Code Status: Full Hospital Classification Declaration: Based on this initial evaluation, and depending on the patient's clinical course, I anticipate that this patient will require hospitalization for 1-2 days for AMS, psychosis and close respiratory/ hemodynamic monitoring. Disposition: Once the patient is stable to leave the hospital, I anticipate the patient will likely be discharged to the following environment: SNF vs inpatient psych I spent 40 minutes on this patient's case, and 22 minutes were dedicated to counseling and/or care coordination. Discussed with patient/family, nursing staff, SW/CM regarding clinical status, treatment course, and disposition planning. Time of note may not reflect time of encounter Subjective Date patient seen: Oct 22, 2016 Time patient seen: 17:30 Constitutional: Denies: chills, diaphoresis, fever, malaise HEENT: Denies: blurred vision, double vision, eye pain, mouth pain, mouth swelling, tearing Cardiovascular: Denies: chest pain, edema, irregular heart rate Respiratory: Denies: cough, orthopnea Gastrointestinal/Abdominal: Denies: abdomen distended, abdominal pain Genitourinary: Denies: burning, discharge, frequency Neurologic/Psychiatric: Denies: anxiety, depressed Endocrine: Denies: excessive sweating, flushing, intolerance to cold Hematologic/Lymphatic: Denies: anemia, easy bleeding, easy bruising Allergies: Coded Allergies: HALOPERIDOL (Verified Allergy, Unknown, 10/19/16) Subjective Per nursing staff, patient has been calm and agreeable. Patient denies any problems. No chest pain, tolerating food well. Objective Last 24 Hour Vital Signs Date Time Temp Pulse Resp B/P Pulse Ox O2 Delivery O2 Flow Rate FiO2 10/22/16 15:45 98.0 96 20 108/63 96 Room Air 10/22/16 13:32 109 20 Room Air 10/22/16 12:16 98.4 109 20 107/64 95 Room Air 10/22/16 08:48 97.0 85 20 131/84 98 Room Air 10/22/16 04:00 97.3 75 20 137/72 90 Room Air 10/22/16 00:00 97.2 85 18 149/83 91 Room Air 10/21/16 22:10 97.9 10/21/16 20:00 97.9 85 18 145/89 91 Room Air 10/21/16 19:17 94 16 Room Air Intake and Output 10/21/16 10/22/16 19:00 07:00 Intake Total 240 ml Balance 240 ml Intake Oral 240 ml # Voids 2 Laboratory Tests 10/22/16 05:20: White Blood Count 12.1H, Red Blood Count 4.62, Hemoglobin 14.3, Hematocrit 44.0 , Mean Corpuscular Volume 95, Mean Corpuscular Hemoglobin 30.9, Mean Corpuscular Hemoglobin Concent 32.4, Red Cell Distribution Width 13.8, Platelet Count 274, Mean Platelet Volume 7.5, Neutrophils (%) (Auto) 68.7, Lymphocytes (% ) (Auto) 22.1, Monocytes (%) (Auto) 7.7, Eosinophils (%) (Auto) 0.8, Basophils ( %) (Auto) 0.7, Sodium Level 142, Potassium Level 4.0, Chloride Level 102, Carbon Dioxide Level 25, Anion Gap 15, Blood Urea Nitrogen 19, Creatinine 0.7, Estimat Glomerular Filtration Rate > 60, Glucose Level 106, Calcium Level 9.4 Height (Feet): 5 Height (Inches): 2.00 Weight (Pounds): 160 General Appearance: WD/WN, no apparent distress EENT: PERRL/EOMI, normal ENT inspection Neck: non-tender Cardiovascular: normal peripheral pulses, normal rate Respiratory/Chest: chest wall non-tender, lungs clear, normal breath sounds Abdomen: normal bowel sounds, non tender, soft Pelvis: normal external exam, normal rectal exam Edema: no edema noted Arm (L), no edema noted Arm (R), no edema noted Leg (L), no edema noted Leg (R), no edema noted Pedal (L), no edema noted Pedal (R), no edema noted 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, alert, oriented x 3 Skin: normal pigmentation, warm/dry Lymphatic: normal anterior cervical (L), normal anterior cervical (R), normal axillary (L), normal axillary (R), normal inguinal (L), normal inguinal (R), normal other, normal posterior cervical (L), normal posterior cervical (R), normal submandibular (L), normal submandibular (R), normal supraclavicular (L), normal supraclavicular (R) Objective Laboratory Tests Test 10/22/16 05:20 White Blood Count 12.1 K/UL (4.8-10.8) H Red Blood Count 4.62 M/UL (4.20-5.40) Hemoglobin 14.3 G/DL (12.0-16.0) Hematocrit 44.0 % (37.0-47.0) Mean Corpuscular Volume 95 FL (80-99) Mean Corpuscular Hemoglobin 30.9 PG (27.0-31.0) Mean Corpuscular Hemoglobin Concent 32.4 G/DL (32.0-36.0) Red Cell Distribution Width 13.8 % (11.6-14.8) Platelet Count 274 K/UL (150-450) Mean Platelet Volume 7.5 FL (6.5-10.1) Neutrophils (%) (Auto) 68.7 % (45.0-75.0) Lymphocytes (%) (Auto) 22.1 % (20.0-45.0) Monocytes (%) (Auto) 7.7 % (1.0-10.0) Eosinophils (%) (Auto) 0.8 % (0.0-3.0) Basophils (%) (Auto) 0.7 % (0.0-2.0) Sodium Level 142 mEQ/L (135-145) Potassium Level 4.0 mEQ/L (3.4-4.9) Chloride Level 102 mEQ/L (98-107) Carbon Dioxide Level 25 mEQ/L (20-30) Anion Gap 15 (5-15) Blood Urea Nitrogen 19 mg/dL (7-23) Creatinine 0.7 mg/dL (0.5-0.9) Estimat Glomerular Filtration Rate > 60 mL/min (>60) Glucose Level 106 mg/dL (74-106) Calcium Level 9.4 mg/dL (8.6-10.2) SHEFALI DIAZ N.P. Oct 22, 2016 18:32
[2016-10-22 20:00] VITALS: BP 121/71
[2016-10-23] VITALS: BP 124/64
[2016-10-23 04:00] VITALS: BP 123/61
--- NOTE | 2016-10-23 09:11 | General Progress Note ---
Assessment/Plan Assessment/Plan Assessment/Plan Problem List: (1) Acute encephalopathy ICD Codes: G93.40 - Encephalopathy, unspecified SNOMED: 0385488 (2) UTI (urinary tract infection) ICD Codes: N39.0 - Urinary tract infection, site not specified SNOMED: 06667917 (3) Schizophrenia ICD Codes: F20.9 - Schizophrenia, unspecified SNOMED: 80655575 (4) Psychosis ICD Codes: F29 - Unspecified psychosis not due to a substance or known physiological condition SNOMED: 25187963 Qualifiers: Qualified Codes: F29 - Unspecified psychosis not due to a substance or known physiological condition Status: stable Assessment/Plan Psych consulted (Dr. 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 If psych does not recommend locked facility, patient to go to SNF [facility] DVT Prophylaxis: SCD, HSQ Code Status: Full Hospital Classification Declaration: Based on this initial evaluation, and depending on the patient's clinical course, I anticipate that this patient will require hospitalization for 1-2 days for AMS, psychosis and close respiratory/ hemodynamic monitoring. Disposition: Once the patient is stable to leave the hospital, I anticipate the patient will likely be discharged to the following environment: SNF vs inpatient psych I spent 40 minutes on this patient's case, and 22 minutes were dedicated to counseling and/or care coordination. Discussed with patient/family, nursing staff, SW/CM regarding clinical status, treatment course, and disposition planning. Time of note may not reflect time of encounter Subjective Date patient seen: Oct 23, 2016 Time patient seen: 09:11 ROS Limited/Unobtainable: No Constitutional: Denies: chills, diaphoresis, fever, malaise HEENT: Denies: blurred vision, double vision, ear pain, eye pain, mouth pain, mouth swelling, tearing Cardiovascular: Denies: chest pain, edema, irregular heart rate, lightheadedness Respiratory: Denies: cough, orthopnea, shortness of breath Gastrointestinal/Abdominal: Reports: no symptoms Genitourinary: Reports: no symptoms Neurologic/Psychiatric: Reports: no symptoms Endocrine: Denies: excessive sweating, flushing, intolerance to cold Hematologic/Lymphatic: Denies: anemia, easy bleeding Allergies: Coded Allergies: HALOPERIDOL (Verified Allergy, Unknown, 10/19/16) Subjective Per nursing staff, patient has been calm and agreeable. Patient denies any problems. No chest pain, tolerating food well. No problems or outbursts overnight. Objective Last 24 Hour Vital Signs Date Time Temp Pulse Resp B/P Pulse Ox O2 Delivery O2 Flow Rate FiO2 10/23/16 04:00 97.5 93 20 123/61 Room Air 10/23/16 00:00 97.3 18 124/64 91 Room Air 10/22/16 20:00 97.8 88 20 121/71 92 Room Air 10/22/16 19:30 90 20 Room Air 21 10/22/16 15:45 98.0 96 20 108/63 96 Room Air 10/22/16 13:32 109 20 Room Air 10/22/16 12:16 98.4 109 20 107/64 95 Room Air Intake and Output 10/22/16 10/23/16 19:00 07:00 Intake Total 1200 ml Balance 1200 ml Intake Oral 1200 ml # Voids 3 2 Height (Feet): 5 Height (Inches): 2.00 Weight (Pounds): 160 General Appearance: WD/WN, no apparent distress, alert EENT: PERRL/EOMI, normal ENT inspection, TMs normal Neck: non-tender, normal alignment, supple Cardiovascular: normal peripheral pulses, normal rate, regular rhythm Respiratory/Chest: chest wall non-tender, lungs clear, normal breath sounds Abdomen: normal bowel sounds, non tender, soft Edema: no edema noted Arm (L), no edema noted Arm (R), no edema noted Leg (L), no edema noted Leg (R), no edema noted Pedal (L), no edema noted Pedal (R), no edema noted Generalized Objective Laboratory Tests Test 10/22/16 05:20 White Blood Count 12.1 K/UL (4.8-10.8) H Red Blood Count 4.62 M/UL (4.20-5.40) Hemoglobin 14.3 G/DL (12.0-16.0) Hematocrit 44.0 % (37.0-47.0) Mean Corpuscular Volume 95 FL (80-99) Mean Corpuscular Hemoglobin 30.9 PG (27.0-31.0) Mean Corpuscular Hemoglobin Concent 32.4 G/DL (32.0-36.0) Red Cell Distribution Width 13.8 % (11.6-14.8) Platelet Count 274 K/UL (150-450) Mean Platelet Volume 7.5 FL (6.5-10.1) Neutrophils (%) (Auto) 68.7 % (45.0-75.0) Lymphocytes (%) (Auto) 22.1 % (20.0-45.0) Monocytes (%) (Auto) 7.7 % (1.0-10.0) Eosinophils (%) (Auto) 0.8 % (0.0-3.0) Basophils (%) (Auto) 0.7 % (0.0-2.0) Sodium Level 142 mEQ/L (135-145) Potassium Level 4.0 mEQ/L (3.4-4.9) Chloride Level 102 mEQ/L (98-107) Carbon Dioxide Level 25 mEQ/L (20-30) Anion Gap 15 (5-15) Blood Urea Nitrogen 19 mg/dL (7-23) Creatinine 0.7 mg/dL (0.5-0.9) Estimat Glomerular Filtration Rate > 60 mL/min (>60) Glucose Level 106 mg/dL (74-106) Calcium Level 9.4 mg/dL (8.6-10.2) SHEFALI DIAZ N.P. Oct 23, 2016 09:11
[2016-10-23] MEDS: Ascorbic Acid 500mg tab ORAL SCH ×2 (09:21→18:11)
[2016-10-23] MEDS: Docusate 100mg tablet ORAL SCH ×2 (09:21→20:37)
[2016-10-23] MEDS: DULoxetine 30mg cap ORAL SCH (09:21)
[2016-10-23] MEDS: Heparin 5000 units/ml inj SUBQ SCH ×2 (09:22→20:38)
[2016-10-23] MEDS: Lyrica 50mg cap ORAL SCH ×3 (09:22→20:37)
[2016-10-23] MEDS: Ketotifen Fumarate 0.035% 5ml RIGHT EYE SCH ×2 (09:23→20:38)
[2016-10-23 09:26] VITALS: BP 116/67
[2016-10-23 11:44] VITALS: BP 120/71
[2016-10-23 15:58] VITALS: BP 129/59
[2016-10-23 20:00] VITALS: BP 126/72
[2016-10-24] VITALS: BP 134/73
[2016-10-24 03:36] VITALS: BP 112/70
[2016-10-24 08:00] VITALS: BP 131/73
[2016-10-24] MEDS: Lyrica 50mg cap ORAL SCH ×2 (08:00→16:48)
[2016-10-24] MEDS: Heparin 5000 units/ml inj SUBQ SCH ×2 (09:00→09:03)
[2016-10-24] MEDS: DULoxetine 30mg cap ORAL SCH (09:01)
[2016-10-24] MEDS: Ascorbic Acid 500mg tab ORAL SCH ×2 (09:04→18:33)
[2016-10-24] MEDS: Ketotifen Fumarate 0.035% 5ml RIGHT EYE SCH (09:10)
[2016-10-24] MEDS ORDERED: Docusate 100mg cap ORAL SCH (10:00)
[2016-10-24] MEDS: Docusate 100mg cap ORAL SCH ×2 (10:10→18:33)
[2016-10-24 12:00] VITALS: BP 136/75
[2016-10-24 16:00] VITALS: BP 130/75
--- NOTE | 2016-10-24 16:11 | Discharge Instructions ---
Discharge Instructions Discharge Instructions Follow up with: PCP Call MD/Return to Hospital if: fevers, chills, chest pain, SOB Diet: regular Resume Normal Activity?: Yes Activity: resume normal activities For Congestive Heart Failure Reminder Report to your physician any weight gain of 5 pounds or more in one week. Lucina Jason M.D. October 24, 2016 16:11
--- NOTE | 2016-10-24 18:21 | Discharge Summary ---
Discharge Summary Hospital Course Date of Admission Oct 19, 2016 at 19:38 Date of Discharge 10/24/16 Admitting Diagnosis grave disability HPI Tasia Aguilar is a 71 year old female who was admitted on Oct 19, 2016 at 19:38 for Grave Disability Discharge Discharge Disposition Patient was discharged to [facility] (01) Discharge Diagnoses: Discharge Instructions Discharge Instructions Follow up with: PCP Call MD/Return to Hospital if: fevers, chills, chest pain, SOB Activity: resume normal activities Lucina Jason M.D. October 24, 2016 18:21
== END 2016-10-24 18:41 | DRG 71 ==
LOC: EDBD 11:11 → EMR 12:50 → 4W 19:38 → EDBEDREQ 19:49 → 4W 23:16
DX: G93.40 Encephalopathy, unspecified (principal); N39.0 Urinary tract infection, site not specified; F29 Unspecified psychosis not due to a substance or known physiological condition; F20.9 Schizophrenia, unspecified; Z88.8 Allergy status to other drugs, medicaments and biological substances
CPT/HCPCS: 36415; 70450; 80048; 80053; 80300; 80329; 81003; 82306; 82553; 82607; 82746; 83735; 84439; 84443; 84484; 85025; 87081; 87086; 93005; 94664; J8499